=== PATIENT | female | born 1945 | race Caucasian/White ===

== ENCOUNTER 2021-05-23 00:40 | Emergency (ER) | payer MEDICARE, BC ==
[2021-05-23] MEDS ORDERED: Ketorolac 30 MG/ML SDV IM ONE (01:36)
[2021-05-23] MEDS ORDERED: Acetaminophen/oxyCODONE 325-10 MG Tab PO ONE (03:12)
== END 2021-05-23 03:34 | disposition home or self-care (01) ==
LOC: MW.ED 00:40
DX: S22.000A Wedge compression fracture of unspecified thoracic vertebra, initial encounter for closed fracture (principal)
CPT/HCPCS: 71046; 93005; 96372; 99283; A9270; J1885; 93010

== ENCOUNTER 2021-07-27 11:45 | Day surgery (SDC) | payer MEDICARE, BC ==
[~2021-07-27 11:45] MED LIST: Lactated Ringers 1,000 ML IV SCH; Sodium Chloride 0.9% 10 ML Syringe FLUSH PRN; Sodium Chloride 0.9% 2.5 ML Syringe FLUSH PRN; Sodium Chloride 0.9% 20 ML SDV IV PRN
[2021-07-27] MEDS ORDERED: Lidocaine 2% 5 ML SDV ONE (14:40)
[2021-07-27] MEDS ORDERED: Propofol 200 MG/20 ML SDV ONE ×2 (14:43→15:15)
[2021-07-27] MEDS ORDERED: fentaNYL 100 MCG/2 ML SDV ONE (14:43)
== END 2021-07-27 16:12 | disposition home or self-care (01) ==
LOC: MW.SDS 11:45
PROVIDERS: ATTEND Surgery
DX: D12.3 Benign neoplasm of transverse colon (principal); D12.0 Benign neoplasm of cecum; D12.5 Benign neoplasm of sigmoid colon; F17.210 Nicotine dependence, cigarettes, uncomplicated; E78.5 Hyperlipidemia, unspecified; M81.0 Age-related osteoporosis without current pathological fracture; E66.3 Overweight; Z79.82 Long term (current) use of aspirin; Z79.899 Other long term (current) drug therapy; Z98.890 Other specified postprocedural states
CPT/HCPCS: 45380; 45385; J2704; J3010; J7120; 00811; 99100

== ENCOUNTER 2021-12-08 13:14 | Observation (INO) | payer MEDICARE, BC ==
[2021-12-08] MEDS ORDERED: fentaNYL 50 MCG/ML SDV IVPUSH ONE ×2 (14:05→16:52)
[2021-12-08] MEDS ORDERED: Ondansetron 4 MG/2 ML SDV IVPUSH ONE (14:05)
[2021-12-08] MEDS ORDERED: Sodium Chloride 0.9% 2.5 ML Syringe FLUSH PRN (14:05)
[2021-12-08] MEDS ORDERED: Sodium Chloride 0.9% 10 ML Syringe FLUSH PRN (14:05)
[2021-12-08] MEDS ORDERED: Sodium Chloride 0.9% 1,000 ML IV ONE (14:05)
[2021-12-08 14:55] LABS: CARBON DIOXIDE,CO2 29.3 mmol/L (21.0-32.0); POTASSIUM,K 3.7 mmol/L (3.5-5.1)
[2021-12-08] MEDS ORDERED: cefOXitin 2 GM in Premix Bag 1 BAG IV ONE (16:43)
[2021-12-08] MEDS: Lactated Ringers 1,000 ML IV SCH (17:06)
[2021-12-08] MEDS ORDERED: Rocuronium Bromide 50 MG/5 ML Syringe ONE (17:16)
[2021-12-08] MEDS ORDERED: Sugammadex Sodium 200 MG/2 ML VIAL ONE (17:16)
[2021-12-08] MEDS ORDERED: Lidocaine 2% 5 ML SDV ONE (17:16)
[2021-12-08] MEDS ORDERED: Dexamethasone 4 MG/ML 5 ML MDV ONE (17:16)
[2021-12-08] MEDS ORDERED: Ondansetron 4 MG/2 ML SDV ONE ×2 (17:16→17:51)
[2021-12-08] MEDS ORDERED: fentaNYL 100 MCG/2 ML SDV ONE (17:16)
[2021-12-08] MEDS ORDERED: Propofol 200 MG/20 ML SDV ONE (17:16)
[2021-12-08] MEDS ORDERED: Promethazine 25 MG/ML SDV ONE (17:50)
[2021-12-08] MEDS ORDERED: HYDROmorphone 2 MG/ML Syringe ONE (18:24)
[2021-12-08] MEDS ORDERED: ePHEDrine 50 MG/ML SDV ONE (18:45)
[2021-12-08] MEDS ORDERED: Morphine 2 MG/ML SYRINGE IVPUSH PRN (19:38)
[2021-12-08] MEDS ORDERED: Acetaminophen/HYDROcodone 325-5 MG Tab PO PRN (19:38)
[2021-12-08] MEDS ORDERED: Lactated Ringers 1,000 ML IV SCH (19:45)
[2021-12-08] MEDS: cefOXitin 1 GM in Premix Bag 1 BAG IV SCH (22:29)
[2021-12-09] MEDS: Lactated Ringers 1,000 ML IV SCH (01:33)
[2021-12-09] MEDS: cefOXitin 1 GM in Premix Bag 1 BAG IV SCH ×3 (04:21→12:41)
== END 2021-12-09 11:15 | disposition home or self-care (01) ==
LOC: MW.ED 13:14 → MW.MS 15:22
PROVIDERS: ADMIT Surgery; ATTEND Surgery
DX: K35.32 Acute appendicitis with perforation, localized peritonitis, and gangrene, without abscess (principal); K35.890 Other acute appendicitis without perforation or gangrene; M81.0 Age-related osteoporosis without current pathological fracture; Z86.16 Personal history of COVID-19; Z79.82 Long term (current) use of aspirin; Z79.899 Other long term (current) drug therapy; Z01.812 Encounter for preprocedural laboratory examination; Z20.822 Contact with and (suspected) exposure to COVID-19
CPT/HCPCS: 36415; 44970; 74176; 80053; 81001; 83605; 83690; 85025; 87040; 87086; 96361; 96365; 96375; 96376; 99285; A9270; J0131; J0694; J1100; J1170; J2405; J2704; J3010; J3490; J7030; J7120; U0002; 00840; 99100

== ENCOUNTER 2021-12-28 07:19 | Emergency (ER) | payer MEDICARE, BC ==
[2021-12-28] MEDS ORDERED: Lactated Ringers 1,000 ML IV STA ×2 (07:26→11:21)
[2021-12-28] MEDS ORDERED: Iopamidol 755 Mg/ML 100 ML Bottle IV ONE (07:27)
[2021-12-28] MEDS ORDERED: Morphine 4 MG/ML Syringe IVPUSH STA ×2 (07:38→13:10)
[2021-12-28] MEDS ORDERED: Albuterol/Ipratropium 3.0-0.5 MG/3 ML Neb Soln NEB ONE (07:43)
[2021-12-28 08:06] LABS: CARBON DIOXIDE,CO2 20.9 mmol/L (21.0-32.0); POTASSIUM,K 3.3 mmol/L (3.5-5.1)
[2021-12-28] MEDS ORDERED: Cefepime 2 GM in Premix Bag 1 BAG IV STA (08:45)
[2021-12-28] MEDS ORDERED: VANCOmycin 1.25 GM/250 ML 250 ML IV ONE (09:30)
[2021-12-28] MEDS ORDERED: Lidocaine 1% 5 ML VIAL INJECT ONE ×4 (10:27→15:17)
[2021-12-28] MEDS ORDERED: Morphine 4 MG/ML Syringe ONE (16:14)
[2021-12-28] MEDS ORDERED: Morphine 4 MG/ML Syringe IVPUSH ONE (16:17)
[2021-12-28] MEDS ORDERED: fentaNYL 50 MCG/ML SDV IVPUSH ONE (18:40)
[2021-12-28] MEDS ORDERED: Cefepime 2 GM in Premix Bag 1 BAG IV ONE (18:40)
== END 2021-12-28 20:17 ==
LOC: MW.ED 07:19
DX: A41.9 Sepsis, unspecified organism (principal); J18.9 Pneumonia, unspecified organism; J96.01 Acute respiratory failure with hypoxia; J93.9 Pneumothorax, unspecified; J90 Pleural effusion, not elsewhere classified; E87.21 Acute metabolic acidosis; F17.210 Nicotine dependence, cigarettes, uncomplicated; Z86.16 Personal history of COVID-19; Z79.82 Long term (current) use of aspirin; Z20.822 Contact with and (suspected) exposure to COVID-19
CPT/HCPCS: 32551; 36415; 71045; 71275; 74177; 80053; 81001; 82803; 82945; 83605; 83615; 83735; 83986; 84155; 84157; 85025; 85610; 87015; 87040; 87070; 87075; 87076; 87116; 87118; 87149; 87205; 87206; 89050; 93005; 96361; 96365; 96366; 96367; 96375; 96376; 99291; 99292; J0692; J2270; J3010; J3370; J7120; Q9967; U0002; 32555; 93010; J7620-GY

== ENCOUNTER 2022-01-25 15:28 | Inpatient (IN) | payer MEDICARE, BC ==
[2022-01-25] MEDS ORDERED: Sodium Chloride 0.9% 1,000 ML IV ONE ×2 (17:32→20:14)
[2022-01-25] MEDS ORDERED: Ondansetron 4 MG Tab.DIS PO ONE (17:39)
[2022-01-25] MEDS ORDERED: Ondansetron 4 MG/2 ML SDV IVPUSH ONE (17:40)
[2022-01-25 19:54] LABS: CARBON DIOXIDE,CO2 25.2 mmol/L (21.0-32.0); POTASSIUM,K 2.7 mmol/L (3.5-5.1)
[2022-01-25] MEDS ORDERED: Potassium Chloride 20 MEQ in Premix Bag 1 BAG IV ONE (20:10)
[2022-01-25 20:20] LABS: CORONAVIRUS COVID-19 NAA NEGATIVE (NEGATIVE); INFLUENZA A NAA NEGATIVE (NEGATIVE); INFLUENZA B NAA NEGATIVE (NEGATIVE)
[2022-01-25] MEDS ORDERED: Iopamidol 755 MG/ML 500 ML Multipack Bottle IVPUSH STA (21:01)
[2022-01-25] MEDS ORDERED: Ondansetron 4 MG/2 ML SDV IVPUSH PRN (23:13)
[2022-01-25] MEDS ORDERED: Albuterol/Ipratropium 3.0-0.5 MG/3 ML Neb Soln NEB PRN (23:13)
[2022-01-25] MEDS ORDERED: Lactated Ringers 1,000 ML IV SCH (23:15)
[2022-01-25] MEDS ORDERED: Pantoprazole 40 MG in Sodium Chloride 0.9% 10 ML IVPUSH SCH (23:15)
[2022-01-25] MEDS ORDERED: Ciprofloxacin in D5W 400 MG in Premix Bag 1 BAG IV SCH ×2 (23:30)
[2022-01-26] MEDS: Vancomycin 125 MG Cap PO SCH ×4 (00:39→17:38)
[2022-01-26] MEDS: metroNIDAZOLE/Normal Saline 500 MG in Premix Bag 1 BAG IV SCH ×4 (00:45→17:39)
[2022-01-26] MEDS ORDERED: Morphine 2 MG/ML SYRINGE IVPUSH PRN (00:51)
[2022-01-26] MEDS ORDERED: NS with KCl 40mEq 1,000 ML IV SCH (02:15)
[2022-01-26 07:05] LABS: CARBON DIOXIDE,CO2 22.7 mmol/L (21.0-32.0)
[2022-01-26] MEDS ORDERED: SODIUM CHLORIDE 0.9% IV ONE (09:00)
[2022-01-26] MEDS ORDERED: MAGNESIUM SULFATE IV ONE (09:00)
[2022-01-26] MEDS ORDERED: POTASSIUM PHOSPHATES IV ONE (09:00)
[2022-01-26] MEDS: Heparin Sodium 5,000 Units/ML Vial SUBCUT SCH ×2 (09:44→17:38)
[2022-01-26] MEDS ORDERED: Iopamidol 755 MG/ML 500 ML Multipack Bottle IVPUSH STA (11:47)
[2022-01-26] MEDS: Acidophilus with Citrus Pectin/L.acidophilus Tab PO SCH (14:47)
[2022-01-26] MEDS: NS + KCl 20mEq/L 1,000 ML IV SCH (19:02)
[2022-01-27] MEDS: Vancomycin 125 MG Cap PO SCH ×4 (00:26→17:00)
[2022-01-27] MEDS: Heparin Sodium 5,000 Units/ML Vial SUBCUT SCH ×3 (00:26→16:59)
[2022-01-27] MEDS: metroNIDAZOLE/Normal Saline 500 MG in Premix Bag 1 BAG IV SCH ×4 (00:27→17:00)
[2022-01-27] MEDS: NS + KCl 20mEq/L 1,000 ML IV SCH ×3 (02:04→18:52)
[2022-01-27 07:19] LABS: CARBON DIOXIDE,CO2 22.9 mmol/L (21.0-32.0); POTASSIUM,K 3.3 mmol/L (3.5-5.1)
[2022-01-27] MEDS ORDERED: Magnesium Sulfate/Water 4 GM in Premix Bag 1 BAG IV ONE (07:50)
[2022-01-27] MEDS: Acidophilus with Citrus Pectin/L.acidophilus Tab PO SCH (08:01)
[2022-01-27] MEDS ORDERED: Potassium Phosphates 30 MMOLE in Sodium Chloride 0.9% 1,000 ML IV ONE (09:00)
[2022-01-27] MEDS ORDERED: Calcium Gluconate 10% 1 GM/10 ML SDV IV ONE (10:16)
[2022-01-27] MEDS ORDERED: Calcium Gluconate 2 GM in Sodium Chloride 0.9% 100 ML IV ONE (11:00)
[2022-01-28] MEDS: Heparin Sodium 5,000 Units/ML Vial SUBCUT SCH ×3 (00:01→17:12)
[2022-01-28] MEDS: Vancomycin 125 MG Cap PO SCH ×4 (00:01→17:11)
[2022-01-28] MEDS: metroNIDAZOLE/Normal Saline 500 MG in Premix Bag 1 BAG IV SCH ×4 (00:01→17:12)
[2022-01-28] MEDS: NS + KCl 20mEq/L 1,000 ML IV SCH ×3 (01:43→17:50)
[2022-01-28 07:27] LABS: CARBON DIOXIDE,CO2 22.9 mmol/L (21.0-32.0); POTASSIUM,K 3.5 mmol/L (3.5-5.1)
[2022-01-28] MEDS ORDERED: POTASSIUM PHOSPHATES IV ONE (08:30)
[2022-01-28] MEDS ORDERED: MAGNESIUM SULFATE IV ONE (08:30)
[2022-01-28] MEDS ORDERED: SODIUM CHLORIDE 0.9% IV ONE (08:30)
[2022-01-28] MEDS: Acidophilus with Citrus Pectin/L.acidophilus Tab PO SCH (08:49)
[2022-01-28] MEDS: Phosphorus #1 250 MG Tab PO SCH (17:11)
[2022-01-28] MEDS ORDERED: Acetaminophen 325 MG Tab PO PRN (19:41)
[2022-01-29] MEDS: metroNIDAZOLE/Normal Saline 500 MG in Premix Bag 1 BAG IV SCH ×5 (00:54→23:15)
[2022-01-29] MEDS: Phosphorus #1 250 MG Tab PO SCH ×5 (00:55→23:14)
[2022-01-29] MEDS: Vancomycin 125 MG Cap PO SCH ×5 (00:55→23:15)
[2022-01-29] MEDS: Heparin Sodium 5,000 Units/ML Vial SUBCUT SCH ×3 (00:55→17:44)
[2022-01-29] MEDS: NS + KCl 20mEq/L 1,000 ML IV SCH ×3 (03:51→17:53)
[2022-01-29 07:45] LABS: CARBON DIOXIDE,CO2 23.5 mmol/L (21.0-32.0); POTASSIUM,K 3.9 mmol/L (3.5-5.1)
[2022-01-29] MEDS: Acidophilus with Citrus Pectin/L.acidophilus Tab PO SCH (09:29)
[2022-01-29] MEDS ORDERED: Lactated Ringers 1,000 ML IV SCH (21:15)
[2022-01-30] MEDS: Heparin Sodium 5,000 Units/ML Vial SUBCUT SCH ×2 (00:31→09:21)
[2022-01-30] MEDS: Phosphorus #1 250 MG Tab PO SCH ×2 (05:34→11:37)
[2022-01-30] MEDS: Vancomycin 125 MG Cap PO SCH ×2 (05:34→11:37)
[2022-01-30] MEDS: metroNIDAZOLE/Normal Saline 500 MG in Premix Bag 1 BAG IV SCH ×2 (05:34→11:36)
[2022-01-30] MEDS ORDERED: Sodium Chloride 0.9% 500 ML IV ONE (08:15)
[2022-01-30] MEDS ORDERED: Potassium Chloride 20 MEQ Tab.ER PO SCH ×2 (09:00→10:30)
[2022-01-30] MEDS: Acidophilus with Citrus Pectin/L.acidophilus Tab PO SCH (09:21)
[2022-01-30] MEDS: Potassium Chloride 100 ML IV SCH ×2 (09:23→11:35)
== END 2022-01-30 14:30 | disposition home or self-care (01) | DRG 373 ==
LOC: MW.ED 15:28 → MW.MS 21:53
PROVIDERS: ADMIT Student in an Organized Health Care Education/Training Program; ATTEND Student in an Organized Health Care Education/Training Program
DX: K52.9 Noninfective gastroenteritis and colitis, unspecified (principal); A04.72 Enterocolitis due to Clostridium difficile, not specified as recurrent; E86.0 Dehydration; M19.90 Unspecified osteoarthritis, unspecified site; R19.7 Diarrhea, unspecified; H54.7 Unspecified visual loss; R62.7 Adult failure to thrive; E87.6 Hypokalemia; E83.42 Hypomagnesemia; E83.39 Other disorders of phosphorus metabolism; E83.51 Hypocalcemia; M81.0 Age-related osteoporosis without current pathological fracture; Z20.822 Contact with and (suspected) exposure to COVID-19; F32.A Depression, unspecified; Z79.82 Long term (current) use of aspirin; Z79.899 Other long term (current) drug therapy; Z90.49 Acquired absence of other specified parts of digestive tract; Z87.09 Personal history of other diseases of the respiratory system; Z86.16 Personal history of COVID-19; Z86.19 Personal history of other infectious and parasitic diseases; Z87.891 Personal history of nicotine dependence
CPT/HCPCS: 0240U; 36415; 71045; 71260; 74177; 80048; 80053; 81001; 82306; 82330; 82607; 82728; 82746; 83550; 83605; 83735; 83970; 84100; 84132; 84443; 85025; 85045; 85652; 86140; 87045; 87046; 87086; 87324; 87328; 87329; 87449; 87899; 93005; 96361; 96365; 96375; 97161; 97530; 99285; A9270-GY; C9113; J0610; J0744; J1644; J2405; J3475; J3480; J3490; J7030; J7040; J7120; Q9967

== ENCOUNTER 2022-02-18 11:24 | Inpatient (IN) | payer MEDICARE, BC ==
[2022-02-18 15:49] LABS: CARBON DIOXIDE,CO2 27.8 mmol/L (21.0-32.0); POTASSIUM,K 3.3 mmol/L (3.5-5.1)
[2022-02-18] MEDS ORDERED: Iopamidol 755 MG/ML 500 ML Multipack Bottle IVPUSH ONE (16:33)
[2022-02-18] MEDS ORDERED: metroNIDAZOLE 250 MG Tab PO ONE (18:24)
[2022-02-18] MEDS ORDERED: Vancomycin 125 MG Cap PO STA (18:24)
[2022-02-18] MEDS ORDERED: Lactated Ringers 1,000 ML IV SCH (18:45)
[2022-02-18] MEDS ORDERED: Morphine 2 MG/ML SYRINGE IVPUSH PRN (20:12)
[2022-02-18] MEDS ORDERED: Albuterol/Ipratropium 3.0-0.5 MG/3 ML Neb Soln NEB PRN (20:12)
[2022-02-18] MEDS: metroNIDAZOLE/Normal Saline 500 MG in Premix Bag 1 BAG IV SCH (23:28)
[2022-02-18] MEDS: Vancomycin 125 MG Cap PO SCH (23:28)
[2022-02-19] MEDS: Ondansetron 4 MG/2 ML SDV IVPUSH PRN (00:03)
[2022-02-19] MEDS: Lactated Ringers 1,000 ML IV SCH ×3 (03:50→21:02)
[2022-02-19] MEDS: metroNIDAZOLE/Normal Saline 500 MG in Premix Bag 1 BAG IV SCH ×4 (05:36→23:33)
[2022-02-19] MEDS: Vancomycin 125 MG Cap PO SCH ×4 (05:36→23:33)
[2022-02-19 06:52] LABS: CARBON DIOXIDE,CO2 26.8 mmol/L (21.0-32.0); POTASSIUM,K 2.8 mmol/L (3.5-5.1)
[2022-02-19] MEDS ORDERED: Magnesium Sulfate/Water 2 GM in Premix Bag 1 BAG IV ONE (10:57)
[2022-02-19] MEDS: Potassium Chloride 100 ML IV SCH ×2 (11:28→15:46)
[2022-02-19] MEDS: FIDAXOMICIN 200MG TABLET PO SCH ×2 (17:09→21:01)
[2022-02-19] MEDS ORDERED: Fidaxomicin 200 MG Tab PO ONE ×2 (17:09→21:00)
[2022-02-20] MEDS: Lactated Ringers 1,000 ML IV SCH ×2 (05:45→21:58)
[2022-02-20] MEDS: metroNIDAZOLE/Normal Saline 500 MG in Premix Bag 1 BAG IV SCH ×4 (05:46→23:25)
[2022-02-20] MEDS: Vancomycin 125 MG Cap PO SCH ×4 (05:46→23:26)
[2022-02-20 07:08] LABS: CARBON DIOXIDE,CO2 25.1 mmol/L (21.0-32.0); POTASSIUM,K 3.2 mmol/L (3.5-5.1)
[2022-02-20] MEDS: FIDAXOMICIN 200MG TABLET PO SCH ×2 (08:00→20:12)
[2022-02-20] MEDS ORDERED: Fidaxomicin 200 MG Tab PO ONE ×2 (08:00→20:12)
[2022-02-20] MEDS ORDERED: Potassium Phosphates 30 MMOLE in Sodium Chloride 0.9% 1,000 ML IV ONE (11:15)
[2022-02-20] MEDS ORDERED: Acetaminophen 500 MG Tab PO PRN (16:13)
[2022-02-20] MEDS: Ondansetron 4 MG/2 ML SDV IVPUSH PRN (20:12)
[2022-02-21] MEDS: metroNIDAZOLE/Normal Saline 500 MG in Premix Bag 1 BAG IV SCH (05:18)
[2022-02-21] MEDS: Vancomycin 125 MG Cap PO SCH ×3 (05:19→17:22)
[2022-02-21 07:00] LABS: CARBON DIOXIDE,CO2 23.3 mmol/L (21.0-32.0); POTASSIUM,K 3.2 mmol/L (3.5-5.1)
[2022-02-21] MEDS ORDERED: Magnesium Sulfate 2 GM, Potassium Phosphates 30 MMOLE in Sodium Chloride 0.9% 1,000 ML IV ONE (08:05)
[2022-02-21] MEDS ORDERED: Fidaxomicin 200 MG Tab PO ONE (08:09)
[2022-02-21] MEDS: FIDAXOMICIN 200MG TABLET PO SCH (08:09)
[2022-02-21] MEDS: Lactated Ringers 1,000 ML IV SCH (08:09)
[2022-02-21] MEDS: Acidophilus with Citrus Pectin/L.acidophilus Tab PO SCH (10:24)
[2022-02-22] MEDS: Lactated Ringers 1,000 ML IV SCH (00:40)
[2022-02-22] MEDS: Vancomycin 125 MG Cap PO SCH ×2 (00:42→05:58)
[2022-02-22 06:32] LABS: CARBON DIOXIDE,CO2 25.2 mmol/L (21.0-32.0); CHLORIDE,CL 106 mmol/L (98-107); GLUCOSE RANDOM 93 mg/dL (74-106); POTASSIUM,K 3.6 mmol/L (3.5-5.1); SODIUM,NA 137 mmol/L (136-145)
[2022-02-22 06:49] LABS: ESTIMATED GFR 98 mL/min (>60)
[2022-02-22 06:50] LABS: BLOOD UREA NITROGEN,BUN < 1 mg/dL (7.0-18.0)
[2022-02-22] MEDS: Acidophilus with Citrus Pectin/L.acidophilus Tab PO SCH (08:01)
== END 2022-02-22 12:15 | disposition home or self-care (01) | DRG 371 ==
LOC: MW.ED 11:24 → MW.MS 20:05
PROVIDERS: ADMIT Student in an Organized Health Care Education/Training Program; ATTEND Student in an Organized Health Care Education/Training Program
DX: A04.71 Enterocolitis due to Clostridium difficile, recurrent (principal); K52.9 Noninfective gastroenteritis and colitis, unspecified; U07.1 COVID-19; E86.0 Dehydration; M19.90 Unspecified osteoarthritis, unspecified site; A09 Infectious gastroenteritis and colitis, unspecified; Z86.16 Personal history of COVID-19; R62.7 Adult failure to thrive; E87.6 Hypokalemia; E83.42 Hypomagnesemia; E83.39 Other disorders of phosphorus metabolism; M81.0 Age-related osteoporosis without current pathological fracture; F32.A Depression, unspecified; Z79.82 Long term (current) use of aspirin; Z79.899 Other long term (current) drug therapy; Z87.891 Personal history of nicotine dependence; Z90.49 Acquired absence of other specified parts of digestive tract; Z68.32 Body mass index [BMI] 32.0-32.9, adult
CPT/HCPCS: 36415; 74177; 80053; 83605; 85025; 87045; 87046; 87338; 87449; 87899; 99285; A9270 ×2; J7120; Q9967; U0002; 80048; 83735; 84100; 97162-GP; 97530-GP; J2405; J3475; J3480; J3490; J7030